=== PATIENT | male | born 1945 | race Caucasian/White ===

== ENCOUNTER → 2019-10-12 | Outpatient (CLI) | payer OTHER, MEDICARE | LOC: RAD 09:30 | PROVIDERS: ATTEND Family Medicine | DX: I87.8 Other specified disorders of veins (principal); R19.5 Other fecal abnormalities ==

== ENCOUNTER → 2019-10-13 | Outpatient (CLI) | payer OTHER, MEDICARE | LOC: ULTRA 09:47 | PROVIDERS: ATTEND Family Medicine | DX: K81.9 Cholecystitis, unspecified (principal) ==

== ENCOUNTER → 2019-12-22 | Outpatient (CLI) | payer OTHER, MEDICARE | LOC: NUC 12-08 11:58 | PROVIDERS: ATTEND Surgery | DX: K80.50 Calculus of bile duct without cholangitis or cholecystitis without obstruction (principal) ==

== ENCOUNTER 2020-06-19 17:01 | Inpatient (IN) | payer OTHER, MEDICARE ==
[~2020-06-19] VITALS: Ht 167.6 cm; Wt 67.1 kg
[2020-06-19 17:09] VITALS: BP 124/95
[2020-06-19] MEDS ORDERED: ALLOPURINOL 10100 M1 PO (17:13)
[2020-06-19] MEDS ORDERED: TAMSULOSIN HCL0.4 MG PO (17:13)
[2020-06-19] MEDS ORDERED: LISINOPRIL10 MG PO (17:14)
[2020-06-19] MEDS ORDERED: SELEGILINE HCL5 MG PO (17:15)
[2020-06-19] MEDS ORDERED: FINASTERIDE5 MG PO (17:15)
[2020-06-19] MEDS ORDERED: BENZTROPINE MES1 MG PO (17:15)
[2020-06-19 17:24] LABS: ABSOLUTE NEUTROPHILS 11.2 thou/uL (1.4-8.2); BASOPHILS 0.2 % (0.0-2.0); HEMATOCRIT 44.5 % (42.0-52.0); HEMOGLOBIN 14.6 gm/dL (14.0-18.0); LYMPHOCYTES 4.7 % (24.0-44.0); MCH 29.5 pg (26.0-34.0); MCHC 32.8 g/dL (28.0-37.0); MCV 90.1 fL (80.0-100.0); MONOCYTES 5.4 % (1.0-8.0); PLATELET COUNT 208 thou/uL (150-400); POLYS 89.7 % (36.0-66.0); RBC 4.94 mil/uL (4.50-6.00); RDW 14.6 % (10.5-14.5); WBC 12.5 thou/uL (4.0-11.0)
[2020-06-19 17:36] LABS: CALCIUM 9.8 mg/dL (8.5-10.1); CREATININE 1.8 mg/dL (0.7-1.3); POTASSIUM 4.4 mmol/L (3.5-5.1)
[2020-06-19 17:47] LABS: ALBUMIN 3.8 g/dL (3.4-5.0); TOTAL BILIRUBIN 1.8 mg/dL (0.2-1.0); TOTAL PROTEIN 8.4 g/dL (6.4-8.2)
[2020-06-19 18:49] LABS: APTT 24.3 Seconds (24.5-32.8); INR 1.1; PROTIME 11.8 Seconds (9.3-11.4)
[2020-06-19 20:00] LABS: URINE BILIRUBIN NEGATIVE (Negative); URINE BLOOD TRACE (Negative); URINE CLARITY CLEAR; URINE COLOR YELLOW; URINE GLUCOSE-RANDOM* NEGATIVE (Negative); URINE KETONES NEGATIVE (Negative); URINE NITRITE-REFLEX NEGATIVE (Negative); URINE PROTEIN (DIPSTICK) TRACE (Negative)
[2020-06-19 20:02] LABS: URINE LEUKOCYTES-REFLEX 1+ (Negative)
[2020-06-19 20:08] VITALS: BP 106/84
[2020-06-19 20:13] LABS: CASTS None Seen /LPF (None Seen); MUCUS 0-3 Light strn/LPF (None Seen); SQUAMOUS 0-3 Few /LPF (0-3)
[2020-06-19 20:14] LABS: BACTERIA-REFLEX 1-9 Few /HPF (None Seen); CRYSTALS None Seen /LPF (None Seen); URINE RBC 0-2 Rare /HPF (0-2)
[2020-06-19 20:25] VITALS: BP 177/114
[2020-06-19 22:32] VITALS: BP 187/132
--- NOTE | 2020-06-20 03:43 | NUR ---
PT ARRIVED TO UNIT APPROX 2032. PT ORIENTED TO ROOM AND UNIT, WELCOME PACKET PROVIDED. PT AOX4. PT REPORTS 7/10 ABDOMINAL PAIN. PT DENIES SOB WHILE ON ROOM AIR. PT ASSESSED WITH BP OF 182/132. HOME MEDICATIONS REVIEWED AND RECONCILED. ATTENDING DR. KRAMER NOTIFIED, ORDERS RECEIVED FOR ONETIME PO CLONIDINE, NS AT 125ML/HR, PRN IV MORPHINE Q2HR, AND TO RESUME COGENTIN AND ADMINISTER WITH SIP OF WATER. PT REMAINS NPO. PT WITHOUT NAUSEA OR EMESIS. PT AMBULATING INDEPENDENTLY TO BATHROOM, GAIT STEADY, RESTING IN BED OTHERWISE. FREQUENT REPOSITIONING ENCOURAGED WHILE IN BED, PT NOTED TO SHIFT INDEPENDENTLY WHILE IN BED. PT ENCOURAGED TO NOTIFY STAFF FOR ALL NEEDS, CALL LIGHT WITHIN REACH, BED LOCKED IN LOWEST POSITION, FREQUENT MONITORING WILL CONTINUE.
[2020-06-20 05:38] VITALS: BP 168/107
[2020-06-20 07:10] VITALS: BP 148/104
--- NOTE | 2020-06-20 07:16 | EKG ---
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
[2020-06-20 08:23] LABS: ALBUMIN 3.2 g/dL (3.4-5.0); CALCIUM 9.3 mg/dL (8.5-10.1); CREATININE 1.6 mg/dL (0.7-1.3); POTASSIUM 4.6 mmol/L (3.5-5.1); TOTAL BILIRUBIN 1.2 mg/dL (0.2-1.0)
[2020-06-20 16:00] VITALS: BP 146/102
--- NOTE | 2020-06-20 18:30 | NUR ---
PT ASSESSED AT START OF SHIFT. DR. KRAMER IN FIRST THING AM. PT NPO FOR ABD AND TESTING. SURGERY AND GI CONSULTED. NO PLAN FOR SURGERY AT THIS TIME. PT HAVING MUCH PAIN THIS AM HELPED FOR SHORT PERIOD BY MORPHINE BUT AFTER IV TORODOL PT HAS NOT HAD ANY FURTHER PAIN. SISTER HERE FOR LONG VISIT. PT SLEPT SOME THIS AFTERNOON. VOIDING SMALL AMTS URINE EACH TIME. FLOMAX STARTED THIS AM.
[2020-06-20 18:50] LABS: % SATURATION 56 % (20-39); IRON 127 ug/dL (65-175); TIBC 225 ug/dL (250-450)
[2020-06-20 20:19] VITALS: BP 138/82
[2020-06-21 01:06] LABS: IgG 1865 mg/dL (603-1613)
--- NOTE | 2020-06-21 01:50 | NUR ---
ASSESSMENT: PT REMAIN NPO, SIPS OF WATER TAKEN WITH COGENTIN. UP AD CRIS. IVF INFUSING WITHOUT DIFFICULTY. VSS, AFEBRILE. DENIES PAIN AND SOB. WILL CONTINUE TO MONITOR.
[2020-06-21 05:37] LABS: LIPASE 862 U/L (73-393); TRIGLYCERIDE 68 mg/dL (<150)
[2020-06-21 06:37] LABS: HEMATOCRIT 40.2 % (42.0-52.0); HEMOGLOBIN 13.2 gm/dL (14.0-18.0); MCH 29.8 pg (26.0-34.0); MCHC 32.8 g/dL (28.0-37.0); MCV 90.8 fL (80.0-100.0); RBC 4.43 mil/uL (4.50-6.00); RDW 15.2 % (10.5-14.5); WBC 20.3 thou/uL (4.0-11.0)
[2020-06-21 06:55] LABS: ALBUMIN 2.8 g/dL (3.4-5.0); ALBUMIN 2.9 g/dL (3.4-5.0); CALCIUM 9.1 mg/dL (8.5-10.1); CREATININE 1.4 mg/dL (0.7-1.3); DIRECT BILIRUBIN 0.2 mg/dL (<0.1-0.2); POTASSIUM 4.1 mmol/L (3.5-5.1); TOTAL BILIRUBIN 0.8 mg/dL (0.2-1.0); TOTAL PROTEIN 6.8 g/dL (6.4-8.2)
[2020-06-21 09:31] VITALS: BP 164/105
--- NOTE | 2020-06-21 11:43 | NUR ---
ASSUMED PT CARE THIS AM. PT VSS, A&OX4. PT MAKES NEEDS KNOWN, UP INDEPENDENTLY. ON ROOM AIR. IV PATENT, MEDS AND FLUIDS INFUSING. MAKES NEEDS KNOWN.
--- NOTE | 2020-06-21 13:58 | NUR ---
ASSESSMENT: CM REVIEWED CHART AND MET WITH PATIENT. PT IS ALERT AND ORIENTED X4. PT REPORTS THAT HE LIVES IN A HOUSE ALONE. PT WAS ADMITTED WITH ACUTE PANCREATITIS. NO SURGICAL INTERVENTION INDICATED. PT REPORTS THAT HE HAS ABOUT 3 STEPS TO ENTER THE HOME AND ABOUT 16 WITH HANDRAILS TO THE UPPER LEVEL. PT STATES HE IS FULLY INDEPENDENT WITH ADLS AND AMBULATION PRIOR TO ADMISSION. CM DISCUSSED ROLE. PT DOES NOT ANTICIPATE HE WILL HAVE ANY NEEDS FROM CM PRIOR TO DISCHARGE. CM WILL CONTINUE TO FOLLOW TO ASSIST NEEDED.
[2020-06-21 16:50] VITALS: BP 176/117
[2020-06-21 20:44] VITALS: BP 171/118
--- NOTE | 2020-06-21 23:53 | NUR ---
ASSESSMENT COMPLETED.PT IS PLEASANT AND COOPERATIVE. TAKES MEDS WITH NO ISSUES. USING URINAL-VOIDING OK. AFEBRILE, DENIES PAIN. IVF AND ABTS INFUSING.CALLS WITH NEEDS. NO FURTHER CONCERNS AT THIS TIME.
[2020-06-22 04:24] VITALS: BP 145/81
[2020-06-22 04:32] VITALS: BP 174/115
[2020-06-22 05:16] LABS: HEMATOCRIT 34.7 % (42.0-52.0); HEMOGLOBIN 11.4 gm/dL (14.0-18.0); MCH 29.9 pg (26.0-34.0); MCHC 32.9 g/dL (28.0-37.0); MCV 90.7 fL (80.0-100.0); RBC 3.82 mil/uL (4.50-6.00); RDW 15.3 % (10.5-14.5); WBC 16.6 thou/uL (4.0-11.0)
[2020-06-22 05:43] LABS: ALBUMIN 2.6 g/dL (3.4-5.0); CALCIUM 8.5 mg/dL (8.5-10.1); CREATININE 1.1 mg/dL (0.7-1.3); POTASSIUM 3.3 mmol/L (3.5-5.1); TOTAL PROTEIN 6.5 g/dL (6.4-8.2)
[2020-06-22 07:00] VITALS: BP 167/116
[2020-06-22] MEDS ORDERED: HYDROCODON-ACE1 EAC7 PO (10:26)
[2020-06-22] MEDS ORDERED: AUGMENTIN 875-1 EACH PO (10:27)
--- NOTE | 2020-06-22 11:25 | NUR ---
ON-GOING ASSESSMENT: CM REVIEWED CHART. PLANS ARE FOR PATIENT TO DISCHARGE HOME TODAY IF HE IS ABLE TO TOLERATE HIS LUNCH. PT WILL HAVE NO NEEDS FROM CM AT DISCHARGE.
[2020-06-22 13:38] VITALS: BP 167/116
[2020-06-22 14:07] LABS: ANA INTERPRETATION Negative (Negative)
[2020-06-22 14:07] LABS: CERULOPLASMIN 22.2 mg/dL (16.0-31.0)
--- NOTE | 2020-06-22 14:39 | NUR ---
PT ALERT AND ORIENTED TIMES FOUR WITH FLAT AFFECT. VSS. IVF INFUSING PER ORDER PT DENIES PAIN/SOA/N/V. PT TOLERATES MEDS AND MEALS. PT UP AB CRIS WITH STEADY GAIT. PLANS FOR DISCHARGE TODAY. SPOKE WITH PT SISTER TODAY TO UPDATE ON CARE. WILL CONTINUE TO MONITOR.
[2020-06-22 14:55] VITALS: BP 150/92
[2020-06-22 17:07] LABS: HAV IgM AB (ANTI-HAV IgM) Negative (Negative); HEP B SURFACE Ab(ANTI-HBS Non Reactive (()); HEPATITIS C VIRUS AB <0.1 (0.0-0.9)
== END 2020-06-22 15:10 | disposition home or self-care (01) | DRG 871 ==
LOC: ER 17:01 → EROBS 19:41 → 4S 19:41
PROVIDERS: Emergency Medicine; Internal Medicine Gastroenterology; Nurse Practitioner; Nurse Practitioner Family; ADMIT Family Medicine; ATTEND Family Medicine
DX: A41.9 Sepsis, unspecified organism (principal); K85.90 Acute pancreatitis without necrosis or infection, unspecified; K81.9 Cholecystitis, unspecified; M10.9 Gout, unspecified; G20 Parkinson's disease; I10 Essential (primary) hypertension; R74.01 Elevation of levels of liver transaminase levels; N40.0 Benign prostatic hyperplasia without lower urinary tract symptoms; Z79.899 Other long term (current) drug therapy
CPT/HCPCS: 10102

== ENCOUNTER 2020-07-28 15:44 | Inpatient (IN) | payer OTHER, MEDICARE ==
[~2020-07-28] VITALS: Ht 167.6 cm; Wt 69.4 kg
[~2020-07-28 15:44] MED LIST: ALLOPURINOL 10100 M1 PO; AUGMENTIN 875-1 EACH PO; BENZTROPINE MES1 MG PO; FINASTERIDE5 MG PO; HYDROCODON-ACE1 EAC7 PO; LISINOPRIL10 MG PO; SELEGILINE HCL5 MG PO; TAMSULOSIN HCL0.4 MG PO
[2020-07-28 15:50] VITALS: BP 129/91
[2020-07-28 16:20] LABS: ABSOLUTE NEUTROPHILS 9.9 thou/uL (1.4-8.2); BASOPHILS 0.4 % (0.0-2.0); EOSINOPHILS 0.3 % (0.0-3.0); HEMATOCRIT 40.5 % (42.0-52.0); HEMOGLOBIN 13.5 gm/dL (14.0-18.0); LYMPHOCYTES 5.2 % (24.0-44.0); MCH 29.8 pg (26.0-34.0); MCHC 33.3 g/dL (28.0-37.0); MCV 89.7 fL (80.0-100.0); MONOCYTES 6.5 % (1.0-8.0); PLATELET COUNT 187 thou/uL (150-400); POLYS 87.6 % (36.0-66.0); RBC 4.52 mil/uL (4.50-6.00); WBC 11.3 thou/uL (4.0-11.0)
[2020-07-28 16:31] LABS: URINE BILIRUBIN NEGATIVE (Negative); URINE BLOOD NEGATIVE (Negative); URINE CLARITY CLEAR; URINE COLOR YELLOW; URINE GLUCOSE-RANDOM* NEGATIVE (Negative); URINE KETONES NEGATIVE (Negative); URINE LEUKOCYTES-REFLEX NEGATIVE (Negative); URINE NITRITE-REFLEX NEGATIVE (Negative); URINE PROTEIN (DIPSTICK) NEGATIVE (Negative); URINE SPECIFIC GRAVITY >= 1.030 (1.005-1.035)
[2020-07-28 16:34] LABS: CALCIUM 9.4 mg/dL (8.5-10.1); CREATININE 1.3 mg/dL (0.7-1.3); POTASSIUM 3.8 mmol/L (3.5-5.1)
[2020-07-28 16:40] LABS: TOTAL BILIRUBIN 1.6 mg/dL (0.2-1.0); TOTAL PROTEIN 8.7 g/dL (6.4-8.2)
[2020-07-28 20:11] VITALS: BP 142/98
[2020-07-28 21:33] VITALS: BP 163/108
[2020-07-29 04:53] LABS: HEMATOCRIT 39.2 % (42.0-52.0); MCH 29.7 pg (26.0-34.0); MCHC 33.1 g/dL (28.0-37.0); MCV 89.8 fL (80.0-100.0); RBC 4.36 mil/uL (4.50-6.00); RDW 15.3 % (10.5-14.5); WBC 8.2 thou/uL (4.0-11.0)
[2020-07-29 05:17] LABS: ALBUMIN 3.4 g/dL (3.4-5.0); CALCIUM 8.7 mg/dL (8.5-10.1); CREATININE 1.2 mg/dL (0.7-1.3); POTASSIUM 4.1 mmol/L (3.5-5.1); TOTAL BILIRUBIN 1.4 mg/dL (0.2-1.0); TOTAL PROTEIN 7.6 g/dL (6.4-8.2)
[2020-07-29 05:53] VITALS: BP 142/91
--- NOTE | 2020-07-29 06:00 | NUR ---
Pt. rested quietly during the night and offers no c/o pain or nausea. Up to the bathroom with standby assistance.
--- NOTE | 2020-07-29 06:59 | NUR ---
Pt. arrived to the unit from the emergency room accompanied by staff. He is alert and oriented and has very little pain. Bp was elevated (see vs) and Dr. Stokes called and notifed, see new orders in cpoe. Admission assessment and history is completed.
[2020-07-29 08:42] VITALS: BP 136/94
--- NOTE | 2020-07-29 14:14 | NUR ---
PT ADMITTED RELATED TO ACUTE PANCREATITIS. CM REVIEWED CHART AND SPOKE WITH CARE TEAM. CM MET WITH PT AT BEDSIDE THIS DAY. PT APPEARED TO BE A&O X4. CM ROLE INTRODUCED. PT INDICATED THAT HE RESIDES ALONE IN A HOUSE WITH 3 STEPS TO ENTER AND 15 STEPS TO SECOND FLOOR. 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 PT INDICATED NO HH OR POST ACUTE CARE STAYS. PT INDICATED THAT HIS PCP IS DR. KRAMER. GI IS CONSULTED. PT INDICATED HE PLANS TO RETURN HOME ONCE MEDICALLY STABLE. CM FOLLOWING REGARDING DC PLANNING.
[2020-07-29 14:20] VITALS: BP 127/86
--- NOTE | 2020-07-29 14:51 | EKG ---
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
--- NOTE | 2020-07-29 15:29 | NUR ---
Received awake on bed. Due medications given as prescribed, able to swallow meds w/o difficulty. On room air. Vital signs stable. On MS, not on telemetry; no complains and signs of chest pain, crushing sensation and heaviness. On NPO- pt informed and aware; no nausea, no vomiting and no abdominal pain noted. Continent of bowel and bladder, able to go to the toilet. With NS at R AC at 125cc/hr, infusing well- increased to 150cc/hr as ordered; on IV antibiotics. Pt seen and examined by Dr Stokes this AM; advanced diet to clear liquids- tolerated for breakfast and lunch- no nausea, no vomiting and no abdominal pain noted. With Gastro consult- answering service called; MAIL DISTRIBUTOR Rangel aware. Pt brought in home meds- verified with Dr Stokes if ok to resume- pharmacist informed and verified meds- given as prescribed. To continue monitoring patient.
[2020-07-29 20:03] VITALS: BP 154/103
--- NOTE | 2020-07-30 03:15 | NUR ---
Pt. rested quietly during the night when checked on during frequent rounds. He offers no c/o pain or nausea. Tolerating clear liquids. Bp elevated (see vs). and spoke to Dr. Stokes during the shift and new order for norvasc 5 mg po (see cpoe). Up to the bathroom with stand by assist.
[2020-07-30 05:00] VITALS: BP 145/93
[2020-07-30 05:40] LABS: HEMATOCRIT 34.2 % (42.0-52.0); HEMOGLOBIN 11.5 gm/dL (14.0-18.0); MCH 30.1 pg (26.0-34.0); MCHC 33.7 g/dL (28.0-37.0); MCV 89.3 fL (80.0-100.0); RBC 3.83 mil/uL (4.50-6.00); RDW 15.1 % (10.5-14.5)
[2020-07-30 06:09] LABS: ALBUMIN 3.1 g/dL (3.4-5.0); CALCIUM 8.6 mg/dL (8.5-10.1); CREATININE 1.1 mg/dL (0.7-1.3); POTASSIUM 3.9 mmol/L (3.5-5.1); TOTAL BILIRUBIN 0.9 mg/dL (0.2-1.0)
[2020-07-30 07:31] VITALS: BP 148/99
--- NOTE | 2020-07-30 12:18 | NUR ---
Received awake on bed. Due medications given as prescribed, able to swallow meds w/o difficulty. On room air. Vital signs stable. On room air. On MS, not on telemetry; no complains and signs of chest pain, crushing sensation and heaviness. Assisted in ADLs. On full liquid diet- tolerating well; no nausea, no vomiting and no abdominal pain noted. Continent of bowel and bladder, able to go to the toilet. With NS at 150cc/hr, infusing well at R AC; on IV antibiotics. No complains of pain made during assessment. With surgery consult- pt seen and examined by Dr Mcclure- patient advised that he will be needing cholecystectomy, to do covid swab prior to procedure as per research greenhouse supervisor Lesly; upon going to patient's room he verbalized that he does not want to have surgery at this time, physician aware; pt informed to tell any member of the staff if he changes his mind re: refusal so covid swab can be done. To continue monitoring patient.
[2020-07-30 16:05] VITALS: BP 150/97
[2020-07-30 20:23] VITALS: BP 135/93
--- NOTE | 2020-07-30 22:35 | NUR ---
Assumed pt care at 1900. A/OX4,VSS.Denies N/V or pain on assessment. Up ad lesa w/o any problems. IVF/Abts infusing via RAC w/o problems. Pt agreeable to being moved to 4S. Pt moved to 443 approx 5,report given to Vaughn MENDOZA. All personal items sent with pt.
--- NOTE | 2020-07-31 01:08 | NUR ---
PT WAS TRANSFERRED TO THE UNIT FROM IN A STABLE CONDITION AT 2215.PT DENIED PAIN SO FAR.UP ADLIB IN THE ROOM WITH A STEADY GAIT.PT ABLE TO MAKE HIS NEEDS KNOWN.CALL LIGHT WITHIN REACH.
[2020-07-31 06:08] LABS: HEMATOCRIT 34.4 % (42.0-52.0); HEMOGLOBIN 11.4 gm/dL (14.0-18.0); MCH 29.9 pg (26.0-34.0); MCHC 33.2 g/dL (28.0-37.0); MCV 90.1 fL (80.0-100.0); RBC 3.82 mil/uL (4.50-6.00); RDW 14.9 % (10.5-14.5); WBC 5.7 thou/uL (4.0-11.0)
[2020-07-31 06:22] LABS: CALCIUM 8.6 mg/dL (8.5-10.1); CREATININE 1.3 mg/dL (0.7-1.3); POTASSIUM 3.6 mmol/L (3.5-5.1); TOTAL BILIRUBIN 0.6 mg/dL (0.2-1.0)
[2020-07-31 07:45] VITALS: BP 152/102
[2020-07-31] MEDS ORDERED: AUGMENTIN 875-1 EACH PO (09:43)
--- NOTE | 2020-07-31 10:01 | NUR ---
ASSUMED PT CARE THIS AM. PT IS ALERT & ORIENTED X4. PT IS UP AD CRIS. PT DENIES PAIN THIS AM. PT HAS IV SITE ON R AC RUNNING NS @ 150 ML/HR. VS STABLE AND TOLERATED MEDICATION AND DIET TODAY. PT ON THE BED SLEEPING, BED ON THE LOWEST POSITION, SIDE RAILS UP, CALL LIGHT WITHIN REACH. WILL CONTINUE TO MONITOR PT. FOLLOW POC.
[2020-07-31 10:29] VITALS: BP 152/102
== END 2020-07-31 16:15 | disposition home or self-care (01) | DRG 439 ==
LOC: ER 15:44 → EROBS 18:54 → 4W 18:54 → 4S 07-30 22:28
PROVIDERS: Nurse Practitioner Family; ADMIT Family Medicine; ATTEND Family Medicine
DX: K85.20 Alcohol induced acute pancreatitis without necrosis or infection (principal); K80.00 Calculus of gallbladder with acute cholecystitis without obstruction; I10 Essential (primary) hypertension; M10.9 Gout, unspecified; G20 Parkinson's disease; N40.0 Benign prostatic hyperplasia without lower urinary tract symptoms; Z79.899 Other long term (current) drug therapy; Z72.89 Other problems related to lifestyle
CPT/HCPCS: 10040; 10195

== ENCOUNTER 2020-08-04 19:30 | Inpatient (IN) | payer OTHER, MEDICARE ==
[~2020-08-04] VITALS: Ht 167.6 cm; Wt 72.6 kg
[~2020-08-04 19:30] MED LIST changes: +SLOW FE142 MG PO; +VITAMIN D325 MC5 PO
[2020-08-04 19:36] VITALS: BP 153/98
[2020-08-04 20:06] LABS: BASOPHILS 0.6 % (0.0-2.0); EOSINOPHILS 1.8 % (0.0-3.0); HEMATOCRIT 36.3 % (42.0-52.0); HEMOGLOBIN 12.1 gm/dL (14.0-18.0); MCH 29.8 pg (26.0-34.0); MCHC 33.3 g/dL (28.0-37.0); MCV 89.4 fL (80.0-100.0); MONOCYTES 11.4 % (1.0-8.0); PLATELET COUNT 228 thou/uL (150-400); POLYS 77.2 % (36.0-66.0); RBC 4.06 mil/uL (4.50-6.00)
[2020-08-04 20:12] LABS: ANION GAP 9 mmol/L (7-16); BUN 20 mg/dL (7-18); CALCIUM 9.2 mg/dL (8.5-10.1); CHLORIDE 105 mmol/L (98-107); CO2 27 mmol/L (21-32); CREATININE 1.2 mg/dL (0.7-1.3); GLUCOSE 185 mg/dL (74-106); POTASSIUM 4.2 mmol/L (3.5-5.1); SODIUM 141 mmol/L (136-145)
[2020-08-04 20:19] LABS: URINE BILIRUBIN NEGATIVE (Negative); URINE BLOOD NEGATIVE (Negative); URINE CLARITY CLEAR; URINE COLOR YELLOW; URINE GLUCOSE-RANDOM* NEGATIVE (Negative); URINE KETONES NEGATIVE (Negative); URINE LEUKOCYTES-REFLEX NEGATIVE (Negative); URINE NITRITE-REFLEX NEGATIVE (Negative); URINE PROTEIN (DIPSTICK) NEGATIVE (Negative); URINE SPECIFIC GRAVITY 1.025 (1.005-1.035); URINE UROBILINOGEN 0.2 E.U./dl (0.2-1.0)
[2020-08-04 20:23] LABS: ALBUMIN 3.4 g/dL (3.4-5.0); AMYLASE 447 U/L (25-115); DIRECT BILIRUBIN 0.5 mg/dL (<0.1-0.2); LIPASE 4487 U/L (73-393); SGOT 270 U/L (15-37); SGPT 196 U/L (30-65); TOTAL BILIRUBIN 0.8 mg/dL (0.2-1.0); TOTAL PROTEIN 7.9 g/dL (6.4-8.2); TROPONIN-I <0.06 ng/mL (<0.06)
[2020-08-04 21:21] VITALS: BP 157/103
[2020-08-04 21:42] VITALS: BP 162/98
[2020-08-05] VITALS (10 sets, daily range): BP systolic 136–154; BP diastolic 96–110
--- NOTE | 2020-08-05 02:15 | NUR ---
ADMISSION COMPLETED. PT IS ALERT AND ORIENTED AND VERY CALM AND PLEASANT. HE DENIES PAIN OR ANY NAUSEA. NPO. IVF INFUSING. OBSERVED STEADY ON HIS FEET SO HE REMAINS UP AD CRIS AT THIS TIME.VOIDING OK PER BATHROOM.BOWEL SOUNDS PRESENT X 2, DENIES DIARHOEA. DOES NOT APPEAR TO BE IN ANY DISTRESS. HE REFUSES SCDS.CALL LIGHT WITHIN REACH.
--- NOTE | 2020-08-05 07:54 | EKG ---
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 08/05/20 0754 00 00 Devin Escobar MD, FACC /EPI
--- NOTE | 2020-08-05 08:56 | NUR ---
ASSESSMENT: CM REVIEWED CHART AND SPOKE WITH PATIENT. PT IS ALERT AND ORIENTED X4. PT REPORTS THAT HE LIVES IN A HOME ALONE. PT REPORTS HAVING 3 STEPS WITH HANDRAIL TO ENTER AND ABOUT 15 STEPS WITH HANDRAILS TO THE UPPER LEVEL. PT REPORTS BEING FULLY INDEPENDENT WITH ADLS AND AMBULATION. PT HAS NO DME. PT REPORTS NO HX OF HH OR SNF. PT WAS ADMITTED DUE TO PANCREATITIS/CHOLECYSTITIS. PT DOES NOT PLAN ON HAVING ANY NEEDS FROM CM. PT REPORTS HIS SISTER WILL PICK HIM UP ONCE HE IS MEDICALLY STABLE TO LEAVE. POSSIBLE DISCHARGE THIS WEEKEND.
--- NOTE | 2020-08-05 10:24 | NUR ---
Assumed care of pt at 0700. Pt a&ox4. Denies pain this am. Up ad lesa. IVF infusing. Pt undergoing surgery this am.
--- NOTE | 2020-08-08 19:06 | PATH ---
[facility] [address] [place] [address] PATHOLOGY RPT PROCEDURE Name: DEREK MONGE Per Room #: 438-P [facility] IN M.R.#: [id number] Admission: 08/04/20 Date of : 47 Discharge: 08/05/20 Report #: [id number] Path Case #: [id number] [facility] Accession Number: [id number] . 01 Material submitted: . gallbladder - GALLBLADDER . 01 Clinical history: . LAPAROSCOPIC CHOLECYSTECTOMY GALLBLADDER PANCREATITIS . 02 Diagnosis: Gallbladder, cholecystectomy: - Moderate chronic cholecystitis. - Cholelithiasis. ([facility]; 08/08/2020) QMS 08/08/2020 1607 Local . 02 Electronically signed: . Larisa Birmingham MD, Pathologist NPI- [id number] . 01 Gross description: . Fixative: Formalin Labeled: Gallbladder Specimen received: Intact cholecystectomy specimen Dimensions: 9.5 x 4.2 x 0.5 cm Serosa: Fink-purple and smooth Lymph node: No Mucosa: Green and velvety Average wall thickness: 0.1 cm Calculi: Yes, multiple jagged black calculi are present within the gallbladder measuring in aggregate 0.8 x 0.8 x 0.3 cm and ranging from 0.2-0.4 cm in greatest dimension Abnormalities: None A1- Filler Block Inserter Remover body, fundus, and the cystic duct margin. ([facility]; 08/07/2020) [facility] 08/07/2020 1218 Local . 02 Pathologist provided ICD-10: K80.10 . 02 CPT . 484824 Specimen Comment: A courtesy copy of this report has been sent to [phone], [phone] Specimen Comment: [phone] [address] PATHOLOGY RPT PROCEDURE Name: MARIPOSA,DEREK Per Room #: 438-P DIS IN M.R.#: [id number] Admission: 08/04/20 Date of : 47 Discharge: 08/05/20 Report #: [id number] Path Case #: [id number] Specimen Comment: Report sent to / DR KRAMER Performed at: 01 [facility] [address], [place], [place] [id number] MD Harris Santana MD Phone: [phone] Performed at: [address] [facility] [address] [id number] MD Larisa Birmingham MD Phone: [phone]
== END 2020-08-05 15:45 | disposition home or self-care (01) | DRG 444 ==
LOC: ER 19:30 → EROBS 21:09 → 4S 21:09
PROVIDERS: Emergency Medicine; ADMIT Family Medicine; ATTEND Family Medicine
DX: K81.0 Acute cholecystitis (principal); K85.90 Acute pancreatitis without necrosis or infection, unspecified; I10 Essential (primary) hypertension; M10.9 Gout, unspecified; N40.0 Benign prostatic hyperplasia without lower urinary tract symptoms; G20 Parkinson's disease; Z85.46 Personal history of malignant neoplasm of prostate; Z92.3 Personal history of irradiation; Z79.899 Other long term (current) drug therapy
CPT/HCPCS: 10195; 50010; 50411; 50555; 51489; 52265; 52266; 53307; 53312; 53314; 55245; 55317; 56462; 56525; 56526; 58574; 62110; 62900